=== PATIENT | male | born 1985 | race Caucasian/White ===

== ENCOUNTER 2018-06-06 13:03 | Emergency (ER) | payer MEDICAID, OTHER ==
[2018-06-06 13:08] VITALS: RESP 18; TEMP 98
--- NOTE | 2018-06-06 14:48 | ED ---
General Adult HPI - General Chief complaint: Psychiatric Symptoms Stated complaint: EPS eval Time Seen by Provider: 06/06/18 13:12 Source: patient, RN notes reviewed, old records reviewed Mode of arrival: ambulatory Limitations: no limitations - History of Present Illness Initial comments: 32-year-old male patient past medical history of depression presents to ED with fleeting thoughts that he wises he were not alive. Patient reports that he has had significant depression for the last 6 months. Patient reports that for the last one month he has had fleeting thought he wishes he were not alive. Pt denies having any plan to hurt himself. Patient denies taking any actions to harm himself or others. Patient denies any plan to hurt other people. Patient is currently taking Ambien and Ativan, denies taking any other psychiatric medication. Patient denies all other complaints. Systemic: Pt denies fatigue, myalgia, fever/chills, rash. Pt denies weakness, night sweats, weight loss. Neuro: Pt denies headache, visual disturbances, syncope or pre-syncope. HEENT: Pt denies ocular discharge or irritation, otalgia, rhinorrhea, pharyngitis or notable lymphadenopathy. Cardiopulmonary: Pt denies chest pain, SOB, heart palpitations, dyspnea on exertion. Abdominal/GI: Pt denies abdominal pain, n/v/d. : Pt denies dysuria, burning w/ urination, frequency/urgency. Denies new onset urinary or bowel incontinence. MSK: Pt denies myalgia, loss of strength or function in extremities. Neuro: Pt denies new onset weakness, paresthesias. - Related Data Home Medications Medication Instructions Recorded Confirmed LORazepam [Ativan] 1 mg PO TID 06/06/18 06/06/18 Zolpidem Tartrate [Ambien] 5 mg PO HS PRN 06/06/18 06/06/18 Allergies Allergy/AdvReac Type Severity Reaction Status Date / Time No Known Allergies Allergy Verified 06/06/18 13:40 Review of Systems ROS Statement: Those systems with pertinent positive or pertinent negative responses have been documented in the HPI. ROS Other: All systems not noted in ROS Statement are negative. Past Medical History Past Medical History: No Reported History Additional Past Medical History / Comment(s): INJURY RT INDEX FINGER ON . CURRENTLY WRAPPED WITH WET GAUZE History of Any Multi-Drug Resistant Organisms: None Reported Past Surgical History: No Surgical Hx Reported Past Anesthesia/Blood Transfusion Reactions: No Reported Reaction Past Psychological History: Depression Smoking Status: Current every day smoker Past Alcohol Use History: Occasional Past Drug Use History: None Reported - Past Family History Father Family Medical History: Hyperlipidemia Additional Family Medical History / Comment(s): Father is alive at age 60 with history of hyperlipidemia. Mother Additional Family Medical History / Comment(s): There is alive at age 59 with history of bipolar schizophrenia with alcohol abuse. Sister(s) Additional Family Medical History / Comment(s): He has one sister with no major medical problems. Brother(s) Additional Family Medical History / Comment(s): He has one brother committed suicide at age 24. Daughter(s) Additional Family Medical History / Comment(s): He has one son and one daughter with no major medical problems. General Exam - General Exam Comments Initial Comments: Constitutional: NAD, AOX3, Pt has pleasant affect. HEENT: NC/AT, trachea midline, neck supple, no lymphadenopathy. Posterior pharynx non erythematous, without exudates. External ears appear normal, without discharge. Mucous membranes moist. Eyes PERRLA, EOM intact. There is no scleral icterus. No pallor noted. Cardiopulmonary: RRR, no murmurs, rubs or gallops, no JVD noted. Lungs CTAB in anterior and posterior hutson. No peripheral edema. Abdominal exam: Abdomen soft and non-distended. Abdomen non-tender to palpation in all 4 quadrants. Bowel sounds active in LLQ. No hepatosplenomegaly. No ecchymosis Neuro: CN II-XII grossly intact. No nuchal rigidity. MSK: No posterior calf tenderness bilaterally, homans sign negative bilaterally. Posterior tibialis and radial pulse +2 bilaterally. Sensation intact in upper and lower extremities. Full active ROM in upper and lower extremities, 5/5 stregnth. Limitations: no limitations Course Vital Signs 06/06/18 13:04 Temperature 98 F Pulse Rate 97 Respiratory 18 Rate Blood Pressure 123/69 O2 Sat by Pulse 98 Oximetry Medical Decision Making - Medical Decision Making 32-year-old male patient past medical history of depression presents to ED with fleeting thoughts that he wises he were not alive. Patient reports that he has had significant depression for the last 6 months. Patient reports that for the last one month he has had fleeting thought he wishes he were not alive. Pt denies having any plan to hurt himself. Patient denies taking any actions to harm himself or others. Patient denies any plan to hurt other people. Patient is currently taking Ambien and Ativan, denies taking any other psychiatric medication. Patient denies all other complaints. Patient vital signs stable, afebrile. Physical exam didn't display any acute pathology. EPS evaluated patient, and recommend discharge. They states that he'll follow up with [facility] tomorrow. On repeat evaluation patient states that he is not suicidal, patient states that he'll follow-up with [facility] tomorrow. Again denies any thoughts of hurting himself or any other people. Case discussed with Dr. Acevedo. Disposition Clinical Impression: Depression Disposition: HOME SELF-CARE Condition: Stable Instructions (If sedation given, give patient instructions): Depression (ED) Additional Instructions: Patient to adhere to previously discussed treatment plan and will take medication(s) as directed. Patient to follow up with PCP in 1-2 days. Patient to return to ED if symptoms do not improve. Please follow up with [facility] as directed. Please return to ED if you have any thoughts of hurting yourself or any other people. Is patient prescribed a controlled substance at d/c from ED?: No Referrals: Alfred Syed MD [Primary Care Provider] - 1-2 days Time of Disposition: 15:07
[2018-06-06 15:24] VITALS: BP 130/90; PULSE 95
== END 2018-06-06 15:23 | disposition home or self-care (01) ==
LOC: EC 13:03
DX: F32.9 Major depressive disorder, single episode, unspecified (principal); F17.200 Nicotine dependence, unspecified, uncomplicated; Z79.899 Other long term (current) drug therapy
CPT/HCPCS: 99285